=== PATIENT | female | born 1955 | race Caucasian/White ===

== ENCOUNTER → 2018-02-28 | Day surgery (SDC) | payer OTHER ==
[~2018-02-28] MED LIST: BACT800T5 PO; D32000TA PO; FURO1TAB93 PO; LEVO75TA3 PO; METF500 PO; NAPR-729 PO; ONETKIT9; POTA20IN3 PO; RANI150T PO; [UNRECOGNIZED DRUG - REMARK] PO
== END | disposition home or self-care (01) ==
LOC: ESDC 08:51
PROVIDERS: ATTEND Student in an Organized Health Care Education/Training Program
DX: C77.3 Secondary and unspecified malignant neoplasm of axilla and upper limb lymph nodes (principal); Z53.9 Procedure and treatment not carried out, unspecified reason

== ENCOUNTER 2018-04-15 14:36 | Inpatient (IN) ==
[2018-04-15] MEDS ORDERED: Piperacil/Tazo 3.375 GM Premix 50 ML IV.SIG SCH ×2 (16:30→18:00)
[2018-04-15] MEDS: Vancomycin Inj 1,000 MG in Sodium Chlor 0.9% Inj 250 ML IV.SIG SCH (17:40)
[2018-04-15] MEDS: Furosemide 40 MG Tablet PO SCH (17:42)
[2018-04-15] MEDS: Famotidine 20 MG Tablet PO SCH (21:23)
[2018-04-15] MEDS: Piperacil/Tazo 3.375 GM Premix 50 ML IV.SIG SCH (21:24)
[2018-04-16] MEDS: Vancomycin Inj 1,000 MG in Sodium Chlor 0.9% Inj 250 ML IV.SIG SCH ×2 (05:20→18:45)
[2018-04-16] MEDS: Levothyroxine 75 MCG Tablet PO SCH (05:20)
[2018-04-16] MEDS: Piperacil/Tazo 3.375 GM Premix 50 ML IV.SIG SCH ×4 (06:08→20:05)
[2018-04-16] MEDS: Famotidine 20 MG Tablet PO SCH ×2 (08:22→20:06)
[2018-04-16] MEDS: Furosemide 40 MG Tablet PO SCH (08:22)
--- NOTE | 2018-04-16 08:51 | P.HPIM ---
History of Present Illness Primary Care Physician: Ruddy Altamirano MD Chief Complaint: left breast infection History of Present Illness: patient is a 62 y/o female who was diagnosed with breast cancer last June, underwent left mastectomy and lymph node removal/ and left breasdt reconstruction about a month ago, was sent to the hospital as a direct admit because of infection of the left breast. she says that she noticed some swelling and redness on the site of the surgery about a week ago. she had fever and chills at home. she was seen by her plastic surgery yesterday and was advised to come to the hospital at the time of my evaluation she was comfortable with mild pain. Inpatient Certification: I certify that the inpatient services were ordered in accordance with Medicare regulations governing the order. This includes certification that hospital inpatient services are reasonable and necessary and in the case of services not specified as inpatient-only under 42 CFR 419.22(n), that they are appropriately provided as inpatient services in accordance to with the 2-midnight benchmark under 43 CFR 412.3(e) Estimated Total Length of Stay (Days): 2 Plans for Post Hospital Care: Home Review of Systems All other systems reviewed negative except as stated in HPI PMFSH - History History Provided By: Patient - Medical History Medical History: Medical History (Last Updated 04/15/18 @ 16:28 by Grecia Hdz RN) Arthritis Breast cancer Diabetes Hiatal hernia Hypertension Hypothyroidism - Surgical History Surgical History: Surgical History (Last Updated 04/15/18 @ 16:28 by Grecia Hdz RN) Hx of section Status post chemotherapy - Tobacco History Second Hand Smoke Exposure: No Tobacco Use In Past 30 Days: No Smoking Status: Former smoker Tobacco Type: Cigarettes - Alcohol History How Often Do You Have a Drink Containing Alcohol: Never - Substance Use History Substance History: No History of Abuse Medications and Allergies Active Medications: Active Medications Hydrocodone Bitart/Acetaminophen (Milton 5/325) 1 tab PO Q6H PRN PRN Reason: PAIN SCALE 1 TO 10 Last Admin: 04/16/18 01:47 Dose: 1 tab Famotidine (Pepcid) 20 mg PO BID PETE Last Admin: 04/16/18 08:22 Dose: 20 mg Furosemide (Lasix) 40 mg PO DAILY PETE Last Admin: 04/16/18 08:22 Dose: 40 mg Vancomycin HCl 1,000 mg/ (Sodium Chloride) 250 mls @ 250 mls/hr IV.SIG Q12H [facility] Last Admin: 04/16/18 05:20 Dose: 250 mls/hr Piperacillin/Tazobactam/Dextrose (Zosyn 3.375 Gm Premix) 50 mls @ 100 mls/hr IV.SIG Q6H [facility] Last Admin: 04/16/18 08:22 Dose: 100 mls/hr Levothyroxine Sodium (Synthroid) 75 mcg PO DAILY@0600 [facility] Last Admin: 04/16/18 05:20 Dose: 75 mcg Losartan Potassium (Cozaar) 25 mg PO DAILY [facility] Last Admin: 04/16/18 08:22 Dose: 25 mg Potassium Chloride (K-Dur) 20 meq PO DAILY [facility] Last Admin: 04/16/18 08:22 Dose: 20 meq Allergies Allergy/AdvReac Type Severity Reaction Status Date / Time No Known Allergies Allergy Uncoded 08/14/15 09:09 Home Medications Medication Instructions Recorded Confirmed Type acetaminophen [Tylenol Extra 500 mg PO QID 04/15/18 04/15/18 History Strength] calcium carbonate-vitamin D3 600 mg PO DAILY 04/15/18 04/15/18 History [Caltrate with Vitamin D3] cholecalciferol (vitamin D3) 2,000 unit PO DAILY 04/15/18 04/15/18 History [Vitamin D3] furosemide [Lasix] 40 mg PO DAILY 04/15/18 04/15/18 History levothyroxine 75 mcg PO DAILY 04/15/18 04/15/18 History losartan 6.25 mg PO DAILY 04/15/18 04/15/18 History metformin 500 mg PO TID 04/15/18 04/15/18 History potassium chloride 20 meq PO DAILY 04/15/18 04/15/18 History ranitidine HCl 150 mg PO DAILY 04/15/18 04/15/18 History Exam Vital signs: Vital Signs 04/15/18 17:00 04/15/18 20:00 04/16/18 00:00 Temperature 101.0 F H 99.2 F 99.8 F H Pulse Rate 110 H 107 H 94 H Respiratory Rate 20 20 18 Blood Pressure 114/74 132/59 L 102/56 L Pulse Oximetry 96 92 L 93 L 04/16/18 04:00 Temperature 98.4 F Pulse Rate 87 Respiratory Rate 18 Blood Pressure 106/53 L Pulse Oximetry 93 L Intake & Output 04/15/18 04/16/18 04/16/18 18:59 06:59 18:59 Intake Total 250 / 250 220 / 220 Balance 250 / 250 220 / 220 Weight 93.3 kg 94.2 kg Intake: IV 250 / 250 100 / 100 Zosyn 3.375 GM Premix 50 ML @ 100 / 100 100 mls/hr IV.SIG Q6H PETE Rx#: [id number] Vancomycin Inj 1,000 MG In NS 250 / 250 Inj 250 ML @ 250 mls/hr IV.SIG Q12H PETE Rx#:[id number] Oral 120 / 120 Other: # Voids 2 # Bowel Movements 0 Weight On Admission 93.3 kg - Constitutional no acute distress - Routine Chest/Breast/Axilla Exam Breast: Present: tenderness, erythema (left breast.) - Routine Respiratory Exam Present: CTA bilaterally - Routine Cardiovascular Exam Present: RRR - Routine Abdominal Exam Present: soft - Routine Extremities Exam Comments: no pedal edema. - Routine Neurological Exam Present: alert, oriented X3 Results - Labs CBC & Chem 7: 04/16/18 09:55 04/16/18 09:55 Caprini VTE Risk Assessment Caprini VTE Risk Assessment: Moderate/High Risk (score >= 2) Caprini Risk Assessment Model: Point Value = 1 Point Value = 2 Point Value = 3 Point Value = 5 Age 41-60 Minor surgery BMI > 25 kg/m2 Swollen legs Varicose veins or History of unexplained or recurrent spontaneous Oral contraceptives or hormone replacement Sepsis (< 1 month) Serious lung disease, including pneumonia (< 1 month) Abnormal pulmonary function Acute myocardial infarction Congestive heart failure (< 1 month) History of inflammatory bowel disease Medical patient at bed rest Age 61-74 Arthroscopic surgery Major open surgery (> 45 min) Laparoscopic surgery (> 45 min) Malignancy Confined to bed (> 72 hours) Immobilizing plaster cast Central venous access Age >= 75 History of VTE Family history of VTE Factor V Leiden Prothrombin [id number] Lupus anticoagulant Anticardiolipin antibodies Elevated serum homocysteine Heparin-induced thrombocytopenia Other congenital or acquired thrombophilia Stroke (< 1 month) Elective arthroplasty Hip, pelvis, or leg fracture Acute spinal cord injury (< 1 month) Prophylaxis Regimen: Total Risk Factor Score Risk Level Prophylaxis Regimen 0-1 Low Early ambulation 2 Moderate Order ONE of the following: *Sequential Compression Device (SCD) *Heparin 5000 units SQ BID 3-4 Higher Order ONE of the following medications: *Heparin 5000 units SQ TID *Enoxaparin/Lovenox 40 mg SQ daily (WT < 150 kg, CrCl > 30 mL/min) *Enoxaparin/Lovenox 30 mg SQ daily (WT < 150 kg, CrCl > 10-29 mL/min) *Enoxaparin/Lovenox 30 mg SQ BID (WT < 150 kg, CrCl > 30 mL/min) AND/OR *Sequential Compression Device (SCD) 5 or more Highest Order ONE of the following medications: *Heparin 5000 units SQ TID (Preferred with Epidurals) *Enoxaparin/Lovenox 40 mg SQ daily (WT < 150 kg, CrCl > 30 mL/min) *Enoxaparin/Lovenox 30 mg SQ daily (WT < 150 kg, CrCl > 10-29 mL/min) *Enoxaparin/Lovenox 30 mg SQ BID (WT < 150 kg, CrCl > 30 mL/min) AND *Sequential Compression Device (SCD) Assessment and Plan - Plan A/P - sepsis due to cellulitis of the left breast- s/p recent mastectomy and left breast reconstruction continue with broad-spectrum IV antibiotics and pain control- obtain blood cultures- plastic surgery consulted- will consider ID evaluation. -diabetes mellitus; start on accu-check with SSI -hypothyroidism; resume home meds -DVT prophylaxis; SCD's till surgery evaluation. Discharge Planning: pending surgery evaluation. H&P: Quality - VTE Deep Vein Thrombosis/Pulmonary Embolism Present on Admission: No
[2018-04-16] MEDS ORDERED: Dextrose 50% in Water 50 ML Vial IV.PUSH PRN (08:54)
[2018-04-16 10:10] LABS: Baso # (Auto) 0.1 th/mm3 (0.0-0.2); Baso % (Auto) 0.5 % (0.0-2.0); Eos # (Auto) 0.1 th/mm3 (0.0-0.4); Eos % (Auto) 0.5 % (0.0-4.0); Hematocrit 35.1 % (35.0-46.0); Hemoglobin 11.8 gm/dL (11.6-15.3); Lymph # (Auto) 0.6 th/mm3 (1.0-4.8); Lymph % (Auto) 5.1 % (9.0-44.0); Mean Corpuscular HGB Conc 33.5 % (32.0-36.0); Mean Corpuscular Volume 89.6 fL (80.0-100.0); Mean Platelet Volume 8.1 fL (7.0-11.0); Mono # (Auto) 1.2 th/mm3 (0.0-0.9); Mono % (Auto) 9.2 % (0.0-8.0); Neut # (Auto) 10.7 th/mm3 (1.8-7.7); Neut % (Auto) 84.7 % (16.0-70.0); Platelet Count 240 th/mm3 (150-450); Red Blood Count 3.92 mil/mm3 (4.00-5.30); White Blood Count 12.7 th/mm3 (4.0-11.0)
[2018-04-16 10:24] LABS: Calcium 9.5 mg/dL (8.5-10.1); Carbon Dioxide 29.1 meq/L (21.0-32.0); Potassium 3.4 meq/L (3.5-5.1)
[2018-04-16 10:44] LABS: Lymphocytes 3 % (9-44); Monocytes 11 % (0-8); Platelet Estimate Normal (Normal); Platelet Morphology Normal (Normal)
[2018-04-16] MEDS: Insulin NovoLOG Aspart Correctional Sugar Inj SQ SCH ×3 (14:39→20:11)
--- NOTE | 2018-04-16 16:15 | US ---
EXAM DATE: 04/16/2018 4:06 PM EDT AGE/SEX: 62 years / Female INDICATIONS: Abscess. CLINICAL DATA: This is the patient's initial encounter. Patient reports that signs and symptoms have been present for 1 week and indicates a pain score of 4/10. MEDICAL/SURGICAL HISTORY: Hypertension. Hypothyroidism. Arthritis. Breast cancer. Diabetes. Hi atal hernia. section. Mastectomy, left. Chemotherapy. COMPARISON: [facility], US BREAST, LEFT, 10/19/2017. . TECHNIQUE: Real-time ultrasound examination was performed using a high-frequency transducer. Conven tional and compound scanning techniques were used. FINDINGS: There is a complex fluid collection in the inferior portion of left breast at the 5:00 position 4 cm from the nipple. This region measures 5.2 x 5.6 x 1.2 cm and demonstrates mild increased color flow a long the periphery. CONCLUSION: 1. Complex fluid collection. The differential diagnosis includes abscess and hematoma.. Electronically signed by: David Trammell MD 04/16/2018 4:13 PM EDT
--- NOTE | 2018-04-16 16:58 | P.PN ---
Subjective Interval history: Patient reports continued pain of the left chest with any sort of pressing maneuver of her left upper extremity. Patient complaining of constipation since her last bowel movements during an episode of diarrhea on Wednesday. Patient status post milk of magnesia this morning. Patient reports that she has been ambulating Physical Exam Vital signs: Vital Signs 04/15/18 17:00 04/15/18 20:00 04/16/18 00:00 Temperature 101.0 F H 99.2 F 99.8 F H Pulse Rate 110 H 107 H 94 H Respiratory Rate 20 20 18 Blood Pressure 114/74 132/59 L 102/56 L Pulse Oximetry 96 92 L 93 L 04/16/18 04:00 04/16/18 08:00 04/16/18 12:00 Temperature 98.4 F 97.9 F 98.3 F Pulse Rate 87 91 H 98 H Respiratory Rate 18 20 Blood Pressure 106/53 L 122/74 94/60 L Pulse Oximetry 93 L 97 96 Intake & Output 04/15/18 04/16/18 04/16/18 18:59 06:59 18:59 Intake Total 250 / 250 220 / 220 50 / 50 Balance 250 / 250 220 / 220 50 / 50 Weight 93.3 kg 94.2 kg Intake: IV 250 / 250 100 / 100 50 / 50 Zosyn 3.375 GM Premix 50 ML @ 100 / 100 50 / 50 100 mls/hr IV.SIG Q6H PETE Rx#: [id number] Vancomycin Inj 1,000 MG In NS 250 / 250 Inj 250 ML @ 250 mls/hr IV.SIG Q12H PETE Rx#:[id number] Oral 120 / 120 Other: # Voids 2 # Bowel Movements 0 Weight On Admission 93.3 kg Narrative: Patient awake/alert/pleasant Left axillary and inferior mastectomy skin flaps erythematous/warm More tender than yesterday at clinic No fluctuance appreciated Results - Labs CBC & Chem 7: 04/16/18 09:55 04/16/18 09:55 Laboratory Results - last 24 hr 04/16/18 04/16/18 04/16/18 09:55 09:55 12:51 WBC 12.7 H RBC 3.92 L Hgb 11.8 Hct 35.1 MCV 89.6 MCH 30.0 MCHC 33.5 RDW 14.0 Plt Count 240 MPV 8.1 Prelim Diff (Auto) Slide review pending Neut % (Auto) 84.7 H Lymph % (Auto) 5.1 L [place] % (Auto) 9.2 H Eos % (Auto) 0.5 Baso % (Auto) 0.5 Neut # (Auto) 10.7 H Lymph # (Auto) 0.6 L [place] # (Auto) 1.2 H Eos # (Auto) 0.1 Baso # (Auto) 0.1 WBC Differential Manual diff final Seg Neuts % (Manual) 79 H Band Neuts % (Manual) 7 H Lymphocytes % (Manual) 3 L Monocytes % (Manual) 11 H Abs Neuts (Manual) 10.9 H Differential Comment . Platelet Estimate Normal Platelet Morphology Normal Sodium 137 Potassium 3.4 L Chloride 100 Carbon Dioxide 29.1 Anion Gap 8 BUN 10 Creatinine 1.02 H Estimated GFR 55 L POC Glucose 184 H Random Glucose 139 H Calcium 9.5 04/16/18 16:26 WBC RBC Hgb Hct MCV MCH MCHC RDW Plt Count MPV Prelim Diff (Auto) Neut % (Auto) Lymph % (Auto) [place] % (Auto) Eos % (Auto) Baso % (Auto) Neut # (Auto) Lymph # (Auto) [place] # (Auto) Eos # (Auto) Baso # (Auto) WBC Differential Seg Neuts % (Manual) Band Neuts % (Manual) Lymphocytes % (Manual) Monocytes % (Manual) Abs Neuts (Manual) Differential Comment Platelet Estimate Platelet Morphology Sodium Potassium Chloride Carbon Dioxide Anion Gap BUN Creatinine Estimated GFR POC Glucose 174 H Random Glucose Calcium - Imaging Impressions Breast Ultrasound 04/16/18 00:00 CONCLUSION: 1. Complex fluid collection. The differential diagnosis includes abscess and hematoma.. Assessment and Plan - Assessment (1) Cellulitis Code(s): L03.90 - Cellulitis, unspecified Status: Acute - Plan 62-year-old female status post left mastectomy and immediate breast reconstruction with tissue client support professional, now admitted for cellulitis on IV Vanco/ Zosyn Cellulitis appears worse from yesterday Patient with temperature of 101 yesterday and leukocytosis of 12 today Vanco trough with third dose IV Zosyn Left breast ultrasound pending to rule out undrained collections Patient ambulating but will defer chemoprophylaxis to medicine No plans for surgery in the near future Greatly appreciate care by hospitalist team
[2018-04-17] MEDS: Piperacil/Tazo 3.375 GM Premix 50 ML IV.SIG SCH ×4 (01:50→20:36)
[2018-04-17] MEDS: Levothyroxine 75 MCG Tablet PO SCH (06:10)
[2018-04-17] MEDS: Vancomycin Inj 1,000 MG in Sodium Chlor 0.9% Inj 250 ML IV.SIG SCH ×2 (06:11→17:41)
[2018-04-17] MEDS: Furosemide 40 MG Tablet PO SCH (08:32)
[2018-04-17] MEDS: Insulin NovoLOG Aspart Correctional Sugar Inj SQ SCH ×4 (08:39→20:38)
--- NOTE | 2018-04-17 10:01 | P.PNIM ---
Subjective Interval history: f/u; left breast cellulitis looks comfortable. temps better. pain is fairly controlled. d/w the RN. Physical Exam Vital signs: Vital Signs 04/16/18 12:00 04/16/18 16:00 04/16/18 20:00 Temperature 98.3 F 97.9 F 98.1 F Pulse Rate 98 H 98 H 104 H Respiratory Rate 20 20 19 Blood Pressure 94/60 L 101/58 L 99/73 L Pulse Oximetry 96 96 98 04/17/18 00:00 04/17/18 04:00 04/17/18 08:00 Temperature 99.4 F 97.8 F 97.9 F Pulse Rate 98 H 75 86 Respiratory Rate 17 17 20 Blood Pressure 105/68 95/68 L 105/58 L Pulse Oximetry 96 97 96 Intake & Output 04/16/18 04/17/18 04/17/18 18:59 06:59 18:59 Intake Total 100 / 100 590 / 590 Balance 100 / 100 590 / 590 Weight 96 kg Intake: IV 100 / 100 350 / 350 Zosyn 3.375 GM Premix 50 ML @ 100 / 100 100 / 100 100 mls/hr IV.SIG Q6H PETE Rx#: [id number] Vancomycin Inj 1,000 MG In NS 250 / 250 Inj 250 ML @ 250 mls/hr IV.SIG Q12H PETE Rx#:[id number] Oral 240 / 240 Other: # Voids 2 - Constitutional no acute distress - Routine Chest/Breast/Axilla Exam Breast: Present: tenderness, swelling (left breast with some swelling/ mild tenderness and erythema), erythema - Routine Respiratory Exam Present: CTA bilaterally - Routine Cardiovascular Exam Present: RRR - Routine Abdominal Exam Present: soft - Routine Extremities Exam Comments: no pedal edema.has mild swelling/ pain to the right forearm. - Routine Neurological Exam Present: alert, oriented X3 Results - Labs CBC & Chem 7: 04/16/18 09:55 04/16/18 09:55 Laboratory Results - last 24 hr 04/16/18 04/16/18 04/16/18 09:55 09:55 12:51 WBC 12.7 H RBC 3.92 L Hgb 11.8 Hct 35.1 MCV 89.6 MCH 30.0 MCHC 33.5 RDW 14.0 Plt Count 240 MPV 8.1 Prelim Diff (Auto) Slide review pending Neut % (Auto) 84.7 H Lymph % (Auto) 5.1 L [place] % (Auto) 9.2 H Eos % (Auto) 0.5 Baso % (Auto) 0.5 Neut # (Auto) 10.7 H Lymph # (Auto) 0.6 L [place] # (Auto) 1.2 H Eos # (Auto) 0.1 Baso # (Auto) 0.1 WBC Differential Manual diff final Seg Neuts % (Manual) 79 H Band Neuts % (Manual) 7 H Lymphocytes % (Manual) 3 L Monocytes % (Manual) 11 H Abs Neuts (Manual) 10.9 H Differential Comment . Platelet Estimate Normal Platelet Morphology Normal Sodium 137 Potassium 3.4 L Chloride 100 Carbon Dioxide 29.1 Anion Gap 8 BUN 10 Creatinine 1.02 H Estimated GFR 55 L POC Glucose 184 H Random Glucose 139 H Calcium 9.5 Vancomycin Trough 04/16/18 04/16/18 04/16/18 16:26 17:14 20:08 WBC RBC Hgb Hct MCV MCH MCHC RDW Plt Count MPV Prelim Diff (Auto) Neut % (Auto) Lymph % (Auto) [place] % (Auto) Eos % (Auto) Baso % (Auto) Neut # (Auto) Lymph # (Auto) [place] # (Auto) Eos # (Auto) Baso # (Auto) WBC Differential Seg Neuts % (Manual) Band Neuts % (Manual) Lymphocytes % (Manual) Monocytes % (Manual) Abs Neuts (Manual) Differential Comment Platelet Estimate Platelet Morphology Sodium Potassium Chloride Carbon Dioxide Anion Gap BUN Creatinine Estimated GFR POC Glucose 174 H 162 H Random Glucose Calcium Vancomycin Trough 9.9 - Imaging Impressions Breast Ultrasound 04/16/18 00:00 CONCLUSION: 1. Complex fluid collection. The differential diagnosis includes abscess and hematoma.. Assessment and Plan - Plan A/P - sepsis due to cellulitis of the left breast- s/p recent mastectomy and left breast reconstruction left breast US with fluid collection. continue with broad-spectrum IV antibiotics and pain control- follow blood cultures- plastic surgery following- will consider ID evaluation. -right forearm swelling; will check venous doppler. -diabetes mellitus; started on accu-check with SSI -hypothyroidism; resumed home meds -DVT prophylaxis; SCD's till plastic surgery f/u. Discharge Planning: not ready for discharge yet.
[2018-04-17] MEDS: Famotidine 20 MG Tablet PO SCH (10:04)
--- NOTE | 2018-04-17 17:10 | US ---
EXAM DATE: 04/17/2018 4:40 PM EDT AGE/SEX: 62 years / Female INDICATIONS: Right arm swelling. CLINICAL DATA: This is the patient's initial encounter. Patient reports that signs and symptoms have been present for 1 day and indicates a pain score of 2/10. MEDICAL/SURGICAL HISTORY: . Hypertension. Hypothyroidism. Arthritis. Breast cancer. Diabetes. H iatal hernia. section. Mastectomy, left. Chemotherapy. COMPARISON: No prior exams available for comparison. FINDINGS: There is occlusive thrombus within the right cephalic vein. The right internal jugular, coppola bclavian, axillary, brachial and basilic veins are patent. Other: None. CONCLUSION: 1. Superficial thrombus occlusive within the right cephalic vein. No deep venous thrombosis. Electronically signed by: Ramez Elizabeth MD 04/17/2018 5:08 PM EDT
[2018-04-18] MEDS: Piperacil/Tazo 3.375 GM Premix 50 ML IV.SIG SCH ×4 (02:34→20:45)
[2018-04-18] MEDS: Levothyroxine 75 MCG Tablet PO SCH (05:39)
[2018-04-18] MEDS: Vancomycin Inj 1,000 MG in Sodium Chlor 0.9% Inj 250 ML IV.SIG SCH ×2 (05:39→17:31)
--- NOTE | 2018-04-18 08:49 | P.PN ---
Subjective Interval history: Delayed entry from yesterday afternoon Patient reporting continued pain of left chest, slightly better. Physical Exam Vital signs: Vital Signs 04/17/18 12:00 04/17/18 16:00 04/17/18 20:00 Temperature 97.9 F 98 F 97.7 F Pulse Rate 85 85 87 Respiratory Rate 20 20 16 Blood Pressure 92/52 L 113/59 L 103/62 Pulse Oximetry 96 96 97 04/18/18 00:00 04/18/18 04:00 Temperature 97.7 F 97.8 F Pulse Rate 87 76 Respiratory Rate 18 17 Blood Pressure 101/63 101/58 L Pulse Oximetry 95 95 Intake & Output 04/17/18 04/18/18 04/18/18 18:59 06:59 18:59 Intake Total 600 / 600 340 / 340 Balance 600 / 600 340 / 340 Weight 95.5 kg Intake: IV 600 / 600 100 / 100 Zosyn 3.375 GM Premix 50 ML @ 100 / 100 100 / 100 100 mls/hr IV.SIG Q6H PETE Rx#: [id number] Vancomycin Inj 1,000 MG In NS 500 / 500 Inj 250 ML @ 250 mls/hr IV.SIG Q12H PETE Rx#:[id number] Oral 240 / 240 Other: # Voids 2 Narrative: Left chest erythema stable Fluctuance appreciated inferolaterally Results - Labs CBC & Chem 7: 04/16/18 09:55 04/16/18 09:55 Laboratory Results - last 24 hr 04/17/18 04/17/18 04/17/18 08:38 11:30 16:31 POC Glucose 133 H 168 H 164 H Vancomycin Trough 04/17/18 04/17/18 04/18/18 17:31 20:00 08:09 POC Glucose 155 H 109 Vancomycin Trough 11.6 H Microbiology 04/16/18 10:33 Blood - Peripheral Aerobic Blood Culture - Preliminary No growth in 1 day 04/16/18 10:33 Blood - Peripheral Anaerobic Blood Culture - Preliminary No growth in 1 day 04/16/18 10:38 Blood - Peripheral Aerobic Blood Culture - Preliminary No growth in 1 day 04/16/18 10:38 Blood - Peripheral Anaerobic Blood Culture - Preliminary No growth in 1 day - Imaging Impressions Venous Doppler Study 04/17/18 00:00 CONCLUSION: 1. Superficial thrombus occlusive within the right cephalic vein. No deep venous thrombosis. Assessment and Plan - Assessment (1) Cellulitis Code(s): L03.90 - Cellulitis, unspecified Status: Acute - Plan 62-year-old female status post left mastectomy and immediate breast reconstruction with tissue membership administrator, now admitted for cellulitis on IV Vanco/ Zosyn Cellulitis slightly improved Afebrile Vancomycin therapeutic on repeat trough Zosyn Informed consent obtained for bedside aspiration ~35mls thin turbid straw-colored fluid sent for cx and stain Well-tolerated Repeat US of Left chest today to evaluate for persistent fluid
[2018-04-18] MEDS: Insulin NovoLOG Aspart Correctional Sugar Inj SQ SCH ×4 (09:11→20:48)
[2018-04-18] MEDS: Furosemide 40 MG Tablet PO SCH (09:12)
[2018-04-18] MEDS: Famotidine 20 MG Tablet PO SCH (09:18)
--- NOTE | 2018-04-18 10:17 | US ---
EXAM DATE: 04/18/2018 10:06 AM EDT AGE/SEX: 62 years / Female INDICATIONS: Left breast increased swelling. History of left breast carcinoma status post prior mast ectomy and reconstruction with tissue steel erector in place. Patient has pain, swelling and redness CLINICAL DATA: This is the patient's subsequent encounter. Patient reports that signs and symptoms h ave been present for 2 days and indicates a pain score of 0/10. MEDICAL/SURGICAL HISTORY: Carcinoma, breast. Hypertension. Hypothyroidism. Arthritis. Diabe manuela. Hiatal Hernia. Mastectomy, left. section. Chemotherapy. [place] [facility] [place]. . TECHNIQUE: Real-time ultrasound examination was performed using a high-frequency transducer. Conven tional and compound scanning techniques were used. FINDINGS: A targeted left breast ultrasound study was performed and again demonstrates a heterogeneous hypoecho ic area at the 5 to 6:00 position measuring up to 10.1 x 5 x 3 cm in greatest diameter. This appears increased in size since the prior study. There is mild surrounding color flow with no color flow in t he abnormality. CONCLUSION: 1. Apparent interval increase in the size of the heterogeneous hypoechoic area. The differential ben gnosis again includes abscess and hematoma. Electronically signed by: David Trammell MD 04/18/2018 10:16 AM EDT
--- NOTE | 2018-04-18 11:15 | P.PNIM ---
Subjective Interval history: f/u; left breast cellulitis/abscess overall feeling better. pain to the left breast is better. no fever. Physical Exam Vital signs: Vital Signs 04/17/18 12:00 04/17/18 16:00 04/17/18 20:00 Temperature 97.9 F 98 F 97.7 F Pulse Rate 85 85 87 Respiratory Rate 20 20 16 Blood Pressure 92/52 L 113/59 L 103/62 Pulse Oximetry 96 96 97 04/18/18 00:00 04/18/18 04:00 Temperature 97.7 F 97.8 F Pulse Rate 87 76 Respiratory Rate 18 17 Blood Pressure 101/63 101/58 L Pulse Oximetry 95 95 Intake & Output 04/17/18 04/18/18 04/18/18 18:59 06:59 18:59 Intake Total 600 / 600 340 / 340 Balance 600 / 600 340 / 340 Weight 95.5 kg Intake: IV 600 / 600 100 / 100 Zosyn 3.375 GM Premix 50 ML @ 100 / 100 100 / 100 100 mls/hr IV.SIG Q6H PETE Rx#: [id number] Vancomycin Inj 1,000 MG In NS 500 / 500 Inj 250 ML @ 250 mls/hr IV.SIG Q12H PETE Rx#:[id number] Oral 240 / 240 Other: # Voids 2 - Constitutional no acute distress - Routine Chest/Breast/Axilla Exam Breast: Present: swelling, erythema (induation -left breast- seems to be improving.) - Routine Respiratory Exam Present: CTA bilaterally - Routine Cardiovascular Exam Present: RRR - Routine Abdominal Exam Present: soft - Routine Extremities Exam Comments: no pedal edema. - Routine Neurological Exam Present: alert, oriented X3 Results - Labs CBC & Chem 7: 04/16/18 09:55 04/16/18 09:55 Laboratory Results - last 24 hr 04/17/18 04/17/18 04/17/18 08:38 11:30 16:31 POC Glucose 133 H 168 H 164 H Vancomycin Trough 04/17/18 04/17/18 04/18/18 17:31 20:00 08:09 POC Glucose 155 H 109 Vancomycin Trough 11.6 H Microbiology 04/16/18 10:33 Blood - Peripheral Aerobic Blood Culture - Preliminary No growth in 2 days 04/16/18 10:33 Blood - Peripheral Anaerobic Blood Culture - Preliminary No growth in 2 days 04/16/18 10:38 Blood - Peripheral Aerobic Blood Culture - Preliminary No growth in 2 days 04/16/18 10:38 Blood - Peripheral Anaerobic Blood Culture - Preliminary No growth in 2 days 04/17/18 15:17 Fluid - Other Gram Stain - Final - Imaging Impressions Venous Doppler Study 04/17/18 00:00 CONCLUSION: 1. Superficial thrombus occlusive within the right cephalic vein. No deep venous thrombosis. Breast Ultrasound 04/18/18 00:01 CONCLUSION: 1. Apparent interval increase in the size of the heterogeneous hypoechoic area. The differential diagnosis again includes abscess and hematoma. Assessment and Plan - Plan A/P - sepsis due to cellulitis of the left breast- s/p recent mastectomy and left breast reconstruction left breast US with fluid collection. s/p I/D at the bedside. continue with broad-spectrum IV antibiotics and pain control- blood cultures negative so far- will follow the fluid culture. plastic surgery following. -right forearm swelling; doppler with superficial thrombosis- -diabetes mellitus; started on accu-check with SSI -hypothyroidism; resumed home meds -DVT prophylaxis; SCD's till plastic surgery f/u. Discharge Planning: not ready for discharge yet.
[2018-04-18] MEDS ORDERED: Lidocaine 1% Inj 50 ML Vial ONE (14:18)
--- NOTE | 2018-04-18 16:49 | P.PN ---
Subjective Interval history: Patient feeling better from yesterday. No fevers overnight patient reports less pain of left chest Physical Exam Vital signs: Vital Signs 04/17/18 20:00 04/18/18 00:00 04/18/18 04:00 Temperature 97.7 F 97.7 F 97.8 F Pulse Rate 87 87 76 Respiratory Rate 16 18 17 Blood Pressure 103/62 101/63 101/58 L Pulse Oximetry 97 95 95 04/18/18 13:14 Temperature 97.4 F L Pulse Rate 85 Respiratory Rate 18 Blood Pressure 126/60 Pulse Oximetry 99 Intake & Output 04/17/18 04/18/18 04/18/18 18:59 06:59 18:59 Intake Total 600 / 600 340 / 340 Balance 600 / 600 340 / 340 Weight 95.5 kg Intake: IV 600 / 600 100 / 100 Zosyn 3.375 GM Premix 50 ML @ 100 / 100 100 / 100 100 mls/hr IV.SIG Q6H PETE Rx#: [id number] Vancomycin Inj 1,000 MG In NS 500 / 500 Inj 250 ML @ 250 mls/hr IV.SIG Q12H PETE Rx#:[id number] Oral 240 / 240 Other: # Voids 2 Narrative: Left inferior mastectomy skin flaps and axillary skin remains erythematous Mildly tender, though patient with significantly decreased sensation due to mastectomy Positive fluctuance inferolateral left breast Results - Labs CBC & Chem 7: 04/16/18 09:55 04/16/18 09:55 Laboratory Results - last 24 hr 04/17/18 04/17/18 04/17/18 16:31 17:31 20:00 POC Glucose 164 H 155 H Vancomycin Trough 11.6 H 04/18/18 04/18/18 08:09 12:00 POC Glucose 109 148 H Vancomycin Trough Microbiology 04/17/18 15:17 Fluid - Other Gram Stain - Final 04/17/18 15:17 Fluid - Other Body Fluid Culture - Preliminary Staphylococcus aureus 04/16/18 10:33 Blood - Peripheral Aerobic Blood Culture - Preliminary No growth in 2 days 04/16/18 10:33 Blood - Peripheral Anaerobic Blood Culture - Preliminary No growth in 2 days 04/16/18 10:38 Blood - Peripheral Aerobic Blood Culture - Preliminary No growth in 2 days 04/16/18 10:38 Blood - Peripheral Anaerobic Blood Culture - Preliminary No growth in 2 days - Imaging Impressions Venous Doppler Study 04/17/18 00:00 CONCLUSION: 1. Superficial thrombus occlusive within the right cephalic vein. No deep venous thrombosis. Breast Ultrasound 04/18/18 00:01 CONCLUSION: 1. Apparent interval increase in the size of the heterogeneous hypoechoic area. The differential diagnosis again includes abscess and hematoma. Assessment and Plan - Assessment (1) Cellulitis Code(s): L03.90 - Cellulitis, unspecified Status: Acute (2) Left breast abscess Code(s): N61.1 - Abscess of the breast and nipple Status: Acute - Plan 62-year-old female status post left mastectomy and immediate breast reconstruction with tissue getter welder, now admitted for cellulitis on IV Vanco/ Zosyn Cellulitis slightly improved Afebrile Vancomycin therapeutic on repeat trough Zosyn Discussed patient's case with Dr. Segun Mc, the general surgeon who performed the mastectomy Concern expressed to patient regarding undrained collection, given recent repeat ultrasound showing increase in collection Risks benefits and alternative treatments discussed All questions answered and the patient expressed understanding Patient elected to assume the risks of percutaneous Taurus drain placement at bedside Informed consent obtained Significant thin turbid straw-colored fluid expressed 10 Swedish Taurus drain left in place and placed to bulb suction Well-tolerated
[2018-04-19] MEDS: Piperacil/Tazo 3.375 GM Premix 50 ML IV.SIG SCH ×4 (01:27→22:02)
[2018-04-19 06:00] LABS: Baso % (Auto) 0.5 % (0.0-2.0); Eos # (Auto) 0.1 th/mm3 (0.0-0.4); Eos % (Auto) 1.3 % (0.0-4.0); Hematocrit 35.5 % (35.0-46.0); Hemoglobin 11.8 gm/dL (11.6-15.3); Lymph # (Auto) 0.9 th/mm3 (1.0-4.8); Lymph % (Auto) 9.8 % (9.0-44.0); Mean Corpuscular HGB Conc 33.1 % (32.0-36.0); Mean Corpuscular Hemoglobin 29.8 pg (27.0-34.0); Mean Corpuscular Volume 89.8 fL (80.0-100.0); Mean Platelet Volume 7.7 fL (7.0-11.0); Neut % (Auto) 77.4 % (16.0-70.0); Platelet Count 292 th/mm3 (150-450); Red Blood Count 3.95 mil/mm3 (4.00-5.30); Red Cell Distribution Width 14.3 % (11.6-17.2)
[2018-04-19] MEDS: Levothyroxine 75 MCG Tablet PO SCH (06:14)
[2018-04-19] MEDS: Vancomycin Inj 1,000 MG in Sodium Chlor 0.9% Inj 250 ML IV.SIG SCH ×2 (06:15→17:12)
[2018-04-19 06:18] LABS: Calcium 9.1 mg/dL (8.5-10.1); Carbon Dioxide 28.5 meq/L (21.0-32.0); Potassium 3.8 meq/L (3.5-5.1)
[2018-04-19 07:48] LABS: Lymphocytes 11 % (9-44); Monocytes 5 % (0-8); Myelocytes 6 % (0-0); Platelet Estimate Normal (Normal); Platelet Morphology Normal (Normal); RBC Morphology Normal (Normal)
[2018-04-19] MEDS: Famotidine 20 MG Tablet PO SCH (08:18)
[2018-04-19] MEDS: Furosemide 40 MG Tablet PO SCH (08:18)
[2018-04-19] MEDS: Insulin NovoLOG Aspart Correctional Sugar Inj SQ SCH ×4 (08:27→22:04)
--- NOTE | 2018-04-19 10:10 | P.PNIM ---
Subjective Interval history: in no acute distress. has some swelling of the right forearm. no fever. no other complaints. d/w the RN. Physical Exam Vital signs: Vital Signs 04/18/18 13:14 04/18/18 17:47 04/18/18 20:00 Temperature 97.4 F L 97.5 F L 97.6 F Pulse Rate 85 88 91 H Respiratory Rate 18 18 18 Blood Pressure 126/60 111/57 L 110/61 Pulse Oximetry 99 96 98 04/19/18 00:00 04/19/18 04:00 Temperature 97.7 F 97.5 F L Pulse Rate 78 71 Respiratory Rate 18 18 Blood Pressure 103/59 L 105/59 L Pulse Oximetry 94 L 95 Intake & Output 04/18/18 04/19/18 04/19/18 18:59 06:59 18:59 Intake Total 1100 / 1100 220 / 220 Output Total 40 / 40 30 / 30 Balance 1060 / 1060 190 / 190 Weight 95.6 kg Intake: IV 100 / 100 100 / 100 Zosyn 3.375 GM Premix 50 ML @ 100 / 100 100 / 100 100 mls/hr IV.SIG Q6H PETE Rx#: [id number] Oral 1000 / 1000 120 / 120 Output: Wound Drainage 40 / 40 30 / 30 Left Breast 40 / 40 30 / 30 Other: # Voids 6 4 # Bowel Movements 1 - Routine Respiratory Exam Present: CTA bilaterally Comments: drain in place in left breast. - Routine Cardiovascular Exam Present: RRR - Routine Abdominal Exam Present: soft - Routine Extremities Exam Comments: no pedal edema. - Routine Neurological Exam Present: alert, oriented X3 Results - Labs CBC & Chem 7: 04/19/18 05:20 04/19/18 05:20 Laboratory Results - last 24 hr 04/18/18 04/18/18 04/18/18 12:00 16:54 19:55 WBC RBC Hgb Hct MCV MCH MCHC RDW Plt Count MPV Prelim Diff (Auto) Neut % (Auto) Lymph % (Auto) [place] % (Auto) Eos % (Auto) Baso % (Auto) Neut # (Auto) Lymph # (Auto) [place] # (Auto) Eos # (Auto) Baso # (Auto) WBC Differential Seg Neuts % (Manual) Band Neuts % (Manual) Lymphocytes % (Manual) Monocytes % (Manual) Basophils % (Manual) Myelocytes % (Man) Abs Neuts (Manual) Differential Comment Platelet Estimate Platelet Morphology RBC Morphology Sodium Potassium Chloride Carbon Dioxide Anion Gap BUN Creatinine Estimated GFR POC Glucose 148 H 212 H 160 H Random Glucose Calcium 04/19/18 04/19/18 04/19/18 05:20 05:20 07:34 WBC 9.0 RBC 3.95 L Hgb 11.8 Hct 35.5 MCV 89.8 MCH 29.8 MCHC 33.1 RDW 14.3 Plt Count 292 MPV 7.7 Prelim Diff (Auto) Slide review pending Neut % (Auto) 77.4 H Lymph % (Auto) 9.8 [place] % (Auto) 11.0 H Eos % (Auto) 1.3 Baso % (Auto) 0.5 Neut # (Auto) 7.0 Lymph # (Auto) 0.9 L [place] # (Auto) 1.0 H Eos # (Auto) 0.1 Baso # (Auto) 0.0 WBC Differential Manual diff final Seg Neuts % (Manual) 68 Band Neuts % (Manual) 9 H Lymphocytes % (Manual) 11 Monocytes % (Manual) 5 Basophils % (Manual) 1 Myelocytes % (Man) 6 H Abs Neuts (Manual) 7.5 Differential Comment . Platelet Estimate Normal Platelet Morphology Normal RBC Morphology Normal Sodium 140 Potassium 3.8 Chloride 104 Carbon Dioxide 28.5 Anion Gap 8 BUN 16 Creatinine 1.01 H Estimated GFR 56 L POC Glucose 119 H Random Glucose 122 H Calcium 9.1 Microbiology 04/17/18 15:17 Fluid - Other Gram Stain - Final 04/17/18 15:17 Fluid - Other Body Fluid Culture - Preliminary Staphylococcus aureus 04/16/18 10:33 Blood - Peripheral Aerobic Blood Culture - Preliminary No growth in 2 days 04/16/18 10:33 Blood - Peripheral Anaerobic Blood Culture - Preliminary No growth in 2 days 04/16/18 10:38 Blood - Peripheral Aerobic Blood Culture - Preliminary No growth in 2 days 04/16/18 10:38 Blood - Peripheral Anaerobic Blood Culture - Preliminary No growth in 2 days - Imaging Impressions Breast Ultrasound 04/18/18 00:01 CONCLUSION: 1. Apparent interval increase in the size of the heterogeneous hypoechoic area. The differential diagnosis again includes abscess and hematoma. Assessment and Plan - Plan A/P - sepsis due to cellulitis of the left breast- s/p recent mastectomy and left breast reconstruction left breast US with fluid collection. s/p I/D / drain placement at the bedside. continue with broad-spectrum IV antibiotics and pain control- blood cultures negative so far- fluid culture with staph. plastic surgery following. -right forearm swelling; doppler with superficial thrombosis- might need to remove the IV access. will monitor. -diabetes mellitus; started on accu-check with SSI -hypothyroidism; resumed home meds -DVT prophylaxis; SCD's till plastic surgery f/u. Discharge Planning: not ready for discharge yet.
--- NOTE | 2018-04-19 20:53 | P.PN ---
Subjective Interval history: Patient reports slightly worse pain of the left chest, though she feels this is because of the procedure yesterday. She also endorses some mild swelling of the right forearm in these location of the IV. Physical Exam Vital signs: Vital Signs 04/19/18 00:00 04/19/18 04:00 04/19/18 08:00 Temperature 97.7 F 97.5 F L 97.5 F L Pulse Rate 78 71 78 Respiratory Rate 18 18 16 Blood Pressure 103/59 L 105/59 L 105/70 Pulse Oximetry 94 L 95 96 04/19/18 12:00 04/19/18 16:00 Temperature 97.7 F 97.3 F L Pulse Rate 76 86 Respiratory Rate 16 16 Blood Pressure 103/57 L 100/65 Pulse Oximetry 96 97 Intake & Output 04/19/18 04/19/18 04/20/18 06:59 18:59 06:59 Intake Total 220 / 220 1200 / 1200 Output Total 30 / 825 / 825 Balance 190 / 190 375 / 375 Weight 95.6 kg Intake: IV 100 / 100 600 / 600 Zosyn 3.375 GM Premix 50 ML @ 100 / 100 100 / 100 100 mls/hr IV.SIG Q6H PETE Rx#: [id number] Vancomycin Inj 1,000 MG In NS 500 / 500 Inj 250 ML @ 250 mls/hr IV.SIG Q12H PETE Rx#:[id number] Oral 120 / 120 600 / 600 Output: Urine 800 / 800 Wound Drainage 30 25 / 25 Left Breast 30 25 / 25 Other: # Voids 4 # Bowel Movements 1 Narrative: Left chest with considerably less erythema Axilla still with moderate erythema Patient appears less tender No fluctuance appreciated Seropurulent output from the drain BASIA drainage with 70 mls overnight Results - Labs CBC & Chem 7: 04/19/18 05:20 04/19/18 05:20 Laboratory Results - last 24 hr 04/19/18 04/19/18 04/19/18 05:20 05:20 07:34 WBC 9.0 RBC 3.95 L Hgb 11.8 Hct 35.5 MCV 89.8 MCH 29.8 MCHC 33.1 RDW 14.3 Plt Count 292 MPV 7.7 Prelim Diff (Auto) Slide review pending Neut % (Auto) 77.4 H Lymph % (Auto) 9.8 [place] % (Auto) 11.0 H Eos % (Auto) 1.3 Baso % (Auto) 0.5 Neut # (Auto) 7.0 Lymph # (Auto) 0.9 L [place] # (Auto) 1.0 H Eos # (Auto) 0.1 Baso # (Auto) 0.0 WBC Differential Manual diff final Seg Neuts % (Manual) 68 Band Neuts % (Manual) 9 H Lymphocytes % (Manual) 11 Monocytes % (Manual) 5 Basophils % (Manual) 1 Myelocytes % (Man) 6 H Abs Neuts (Manual) 7.5 Differential Comment . Platelet Estimate Normal Platelet Morphology Normal RBC Morphology Normal Sodium 140 Potassium 3.8 Chloride 104 Carbon Dioxide 28.5 Anion Gap 8 BUN 16 Creatinine 1.01 H Estimated GFR 56 L POC Glucose 119 H Random Glucose 122 H Calcium 9.1 04/19/18 04/19/18 04/19/18 12:02 16:29 20:36 WBC RBC Hgb Hct MCV MCH MCHC RDW Plt Count MPV Prelim Diff (Auto) Neut % (Auto) Lymph % (Auto) [place] % (Auto) Eos % (Auto) Baso % (Auto) Neut # (Auto) Lymph # (Auto) [place] # (Auto) Eos # (Auto) Baso # (Auto) WBC Differential Seg Neuts % (Manual) Band Neuts % (Manual) Lymphocytes % (Manual) Monocytes % (Manual) Basophils % (Manual) Myelocytes % (Man) Abs Neuts (Manual) Differential Comment Platelet Estimate Platelet Morphology RBC Morphology Sodium Potassium Chloride Carbon Dioxide Anion Gap BUN Creatinine Estimated GFR POC Glucose 143 H 186 H 178 H Random Glucose Calcium Microbiology 04/17/18 15:17 Fluid - Other Gram Stain - Final 04/17/18 15:17 Fluid - Other Body Fluid Culture - Final Staphylococcus aureus 04/16/18 10:33 Blood - Peripheral Aerobic Blood Culture - Preliminary No growth in 3 days 04/16/18 10:33 Blood - Peripheral Anaerobic Blood Culture - Preliminary No growth in 3 days 04/16/18 10:38 Blood - Peripheral Aerobic Blood Culture - Preliminary No growth in 3 days 04/16/18 10:38 Blood - Peripheral Anaerobic Blood Culture - Preliminary No growth in 3 days Assessment and Plan - Assessment (1) Cellulitis Code(s): L03.90 - Cellulitis, unspecified Status: Acute (2) Left breast abscess Code(s): N61.1 - Abscess of the breast and nipple Status: Acute - Plan 62-year-old female status post left mastectomy and immediate breast reconstruction with tissue pediatric speech therapist, now admitted for cellulitis on IV Vanco/ Zosyn Cellulitis improving Afebrile and white blood cell count down to 9 from 12 Vancomycin therapeutic on repeat trough Zosyn I agree with patient that her increased tenderness is likely due to the drain placement as her erythema is significantly improved and her white count is normalized Aspiration culture positive for Staphylococcus aureus
[2018-04-20] MEDS: Piperacil/Tazo 3.375 GM Premix 50 ML IV.SIG SCH ×4 (03:22→20:22)
[2018-04-20] MEDS: Vancomycin Inj 1,000 MG in Sodium Chlor 0.9% Inj 250 ML IV.SIG SCH ×2 (04:42→17:03)
[2018-04-20] MEDS: Levothyroxine 75 MCG Tablet PO SCH (05:11)
[2018-04-20] MEDS: Famotidine 20 MG Tablet PO SCH (09:13)
[2018-04-20] MEDS: Furosemide 40 MG Tablet PO SCH (09:13)
[2018-04-20] MEDS: Insulin NovoLOG Aspart Correctional Sugar Inj SQ SCH ×3 (09:14→20:23)
--- NOTE | 2018-04-20 09:32 | P.PN ---
Subjective Interval history: Patient reports that her left chest pain has entirely resolved except for mild pain in her axilla. This pain was there previously and is slightly better than yesterday. Patient reports that she ambulated 3 yesterday Physical Exam Vital signs: Vital Signs 04/19/18 12:00 04/19/18 16:00 04/19/18 20:00 Temperature 97.7 F 97.3 F L 97.7 F Pulse Rate 76 86 81 Respiratory Rate 16 16 17 Blood Pressure 103/57 L 100/65 103/72 Pulse Oximetry 96 97 96 04/20/18 00:00 04/20/18 04:00 04/20/18 08:00 Temperature 98.0 F 97.7 F 97.6 F Pulse Rate 89 71 78 Respiratory Rate 17 17 16 Blood Pressure 121/66 100/64 99/59 L Pulse Oximetry 97 97 97 Intake & Output 04/19/18 04/20/18 04/20/18 18:59 06:59 18:59 Intake Total 1200 / 1200 572 / 572 Output Total 825 / 825 825 / 825 Balance 375 / 375 -253 / -253 Weight 95.8 kg Intake: IV 600 / 600 350 / 350 Zosyn 3.375 GM Premix 50 ML @ 100 / 100 100 / 100 100 mls/hr IV.SIG Q6H PETE Rx#: [id number] Vancomycin Inj 1,000 MG In NS 500 / 500 250 / 250 Inj 250 ML @ 250 mls/hr IV.SIG Q12H PETE Rx#:[id number] Oral 600 / 600 222 / 222 Output: Urine 800 / 800 800 / 800 Wound Drainage Left Breast Other: # Voids 2 # Bowel Movements 1 Narrative: Erythema has almost resolved Nontender BASIA with 50 mls slightly turbid serous fluid in the last 24 hours Results - Labs CBC & Chem 7: 04/19/18 05:20 04/19/18 05:20 Laboratory Results - last 24 hr 04/19/18 04/19/18 04/19/18 12:02 16:29 20:36 POC Glucose 143 H 186 H 178 H 04/20/18 07:55 POC Glucose 161 H Microbiology 04/17/18 15:17 Fluid - Other Gram Stain - Final 04/17/18 15:17 Fluid - Other Body Fluid Culture - Final Staphylococcus aureus 04/16/18 10:33 Blood - Peripheral Aerobic Blood Culture - Preliminary No growth in 3 days 04/16/18 10:33 Blood - Peripheral Anaerobic Blood Culture - Preliminary No growth in 3 days 04/16/18 10:38 Blood - Peripheral Aerobic Blood Culture - Preliminary No growth in 3 days 04/16/18 10:38 Blood - Peripheral Anaerobic Blood Culture - Preliminary No growth in 3 days Assessment and Plan - Assessment (1) Cellulitis Code(s): L03.90 - Cellulitis, unspecified Status: Acute (2) Left breast abscess Code(s): N61.1 - Abscess of the breast and nipple Status: Acute - Plan 62-year-old female status post left mastectomy and immediate breast reconstruction with tissue workers' compensation hearings officer, admitted for infected seroma, on IV Vanco/ Zosyn, now post bedside BASIA placement on 04/18/2018 Patient much improved overall Aspiration culture positive for Staphylococcus aureus Advised patient that she should remain on IV antibiotics for 1-2 days given the presence of the tissue workers' compensation hearings officer Patient ambulating Appreciate medicine team input
--- NOTE | 2018-04-20 10:33 | P.PNIM ---
Subjective Interval history: in no acute distress. overall doing better. no fever. no new complaints. Physical Exam Vital signs: Vital Signs 04/19/18 12:00 04/19/18 16:00 04/19/18 20:00 Temperature 97.7 F 97.3 F L 97.7 F Pulse Rate 76 86 81 Respiratory Rate 16 16 17 Blood Pressure 103/57 L 100/65 103/72 Pulse Oximetry 96 97 96 04/20/18 00:00 04/20/18 04:00 04/20/18 08:00 Temperature 98.0 F 97.7 F 97.6 F Pulse Rate 89 71 78 Respiratory Rate 17 17 16 Blood Pressure 121/66 100/64 99/59 L Pulse Oximetry 97 97 97 Intake & Output 04/19/18 04/20/18 04/20/18 18:59 06:59 18:59 Intake Total 1200 / 1200 572 / 572 Output Total 825 / 825 825 / 825 Balance 375 / 375 -253 / -253 Weight 95.8 kg Intake: IV 600 / 600 350 / 350 Zosyn 3.375 GM Premix 50 ML @ 100 / 100 100 / 100 100 mls/hr IV.SIG Q6H PETE Rx#: [id number] Vancomycin Inj 1,000 MG In NS 500 / 500 250 / 250 Inj 250 ML @ 250 mls/hr IV.SIG Q12H PETE Rx#:[id number] Oral 600 / 600 222 / 222 Output: Urine 800 / 800 800 / 800 Wound Drainage 25 / Left Breast 25 Other: # Voids 2 # Bowel Movements 1 - Constitutional no acute distress - Detailed Breast Exam left Inspection: Present: erythema (is better.) - Routine Respiratory Exam Present: CTA bilaterally - Routine Cardiovascular Exam Present: RRR - Routine Abdominal Exam Present: soft - Routine Extremities Exam Comments: no pedal edema. - Routine Neurological Exam Present: alert, oriented X3 Results - Labs CBC & Chem 7: 04/19/18 05:20 04/19/18 05:20 Laboratory Results - last 24 hr 04/19/18 04/19/18 04/19/18 12:02 16:29 20:36 POC Glucose 143 H 186 H 178 H 04/20/18 07:55 POC Glucose 161 H Microbiology 04/17/18 15:17 Fluid - Other Gram Stain - Final 04/17/18 15:17 Fluid - Other Body Fluid Culture - Final Staphylococcus aureus 04/16/18 10:33 Blood - Peripheral Aerobic Blood Culture - Preliminary No growth in 3 days 04/16/18 10:33 Blood - Peripheral Anaerobic Blood Culture - Preliminary No growth in 3 days 04/16/18 10:38 Blood - Peripheral Aerobic Blood Culture - Preliminary No growth in 3 days 04/16/18 10:38 Blood - Peripheral Anaerobic Blood Culture - Preliminary No growth in 3 days Assessment and Plan - Plan A/P - sepsis due to cellulitis of the left breast- s/p recent mastectomy and left breast reconstruction- clinically better. left breast US with fluid collection. s/p I/D / drain placement at the bedside. continue with IV antibiotics and pain control- blood cultures negative so far - fluid culture with MSSA. plastic surgery following. -right forearm swelling; doppler with superficial thrombosis- better. -diabetes mellitus; started on accu-check with SSI -hypothyroidism; resumed home meds -DVT prophylaxis; SCD's till plastic surgery f/u. Discharge Planning: when cleared by plastic surgery.
[2018-04-21] MEDS: Piperacil/Tazo 3.375 GM Premix 50 ML IV.SIG SCH ×4 (02:02→20:20)
[2018-04-21] MEDS: Levothyroxine 75 MCG Tablet PO SCH (05:00)
[2018-04-21] MEDS: Vancomycin Inj 1,000 MG in Sodium Chlor 0.9% Inj 250 ML IV.SIG SCH ×2 (05:00→17:45)
[2018-04-21] MEDS: Insulin NovoLOG Aspart Correctional Sugar Inj SQ SCH ×4 (08:25→20:20)
[2018-04-21] MEDS: Furosemide 40 MG Tablet PO SCH (08:58)
[2018-04-21] MEDS: Famotidine 20 MG Tablet PO SCH (08:59)
--- NOTE | 2018-04-21 11:09 | P.PNIM ---
Subjective Interval history: in no acute distress. overall doing better. no fever. no new complaints. Physical Exam Vital signs: Vital Signs 04/20/18 12:00 04/20/18 18:00 04/20/18 20:00 Temperature 98.0 F 97.7 F 97.9 F Pulse Rate 92 H 81 88 Respiratory Rate 16 16 18 Blood Pressure 112/64 121/65 Pulse Oximetry 97 97 95 04/21/18 00:23 04/21/18 04:00 Temperature 97.9 F 97.8 F Pulse Rate 85 81 Respiratory Rate 18 16 Blood Pressure 119/78 103/65 Pulse Oximetry 98 95 Intake & Output 04/20/18 04/21/18 04/21/18 18:59 06:59 18:59 Intake Total 870 / 870 580 / 580 Output Total 830 / 830 Balance 870 / 870 -250 / -250 Intake: IV 350 / 350 100 / 100 Zosyn 3.375 GM Premix 50 ML @ 100 / 100 100 / 100 100 mls/hr IV.SIG Q6H PETE Rx#: [id number] Vancomycin Inj 1,000 MG In NS 250 / 250 Inj 250 ML @ 250 mls/hr IV.SIG Q12H PETE Rx#:[id number] Oral 520 / 520 480 / 480 Output: Urine 800 / 800 Wound Drainage 30 / 30 Left Breast 30 / 30 Other: # Voids 6 # Bowel Movements 1 0 - Constitutional no acute distress - Detailed Breast Exam left Inspection: Present: swelling Comments: swelling and erythema seems to be improving. - Routine Respiratory Exam Present: CTA bilaterally - Routine Cardiovascular Exam Present: RRR - Routine Abdominal Exam Present: soft - Routine Extremities Exam Comments: no pedal edema. - Routine Neurological Exam Present: alert, oriented X3 Results - Labs CBC & Chem 7: 04/19/18 05:20 04/19/18 05:20 Laboratory Results - last 24 hr 04/20/18 04/20/18 04/20/18 12:00 17:09 20:22 POC Glucose 118 H 140 H 144 H 04/21/18 07:51 POC Glucose 137 H Microbiology 04/16/18 10:33 Blood - Peripheral Aerobic Blood Culture - Final No growth in 5 days 04/16/18 10:33 Blood - Peripheral Anaerobic Blood Culture - Final No growth in 5 days 04/16/18 10:38 Blood - Peripheral Aerobic Blood Culture - Final No growth in 5 days 04/16/18 10:38 Blood - Peripheral Anaerobic Blood Culture - Final No growth in 5 days Assessment and Plan - Plan A/P - sepsis due to cellulitis of the left breast- s/p recent mastectomy and left breast reconstruction- clinically better. left breast US with fluid collection. s/p I/D / drain placement at the bedside. continue with IV antibiotics and pain control- blood cultures negative so far - fluid culture with MSSA. plastic surgery following. -right forearm swelling; doppler with superficial thrombosis- better. -diabetes mellitus; started on accu-check with SSI -hypothyroidism; resumed home meds Discharge Planning: when cleared by plastic surgery.
[2018-04-22] MEDS: Piperacil/Tazo 3.375 GM Premix 50 ML IV.SIG SCH ×4 (01:56→20:21)
[2018-04-22] MEDS: Levothyroxine 75 MCG Tablet PO SCH (05:05)
[2018-04-22] MEDS: Vancomycin Inj 1,000 MG in Sodium Chlor 0.9% Inj 250 ML IV.SIG SCH ×2 (05:05→17:38)
[2018-04-22] MEDS: Furosemide 40 MG Tablet PO SCH (08:56)
[2018-04-22] MEDS: Famotidine 20 MG Tablet PO SCH (08:56)
[2018-04-22] MEDS: Insulin NovoLOG Aspart Correctional Sugar Inj SQ SCH ×5 (08:58→23:57)
--- NOTE | 2018-04-22 10:45 | P.PNIM ---
Subjective Interval history: in no acute distress. overall doing better. no fever. no new complaints. Physical Exam Vital signs: Vital Signs 04/21/18 12:00 04/21/18 16:00 04/21/18 20:00 Temperature 97.7 F 98.0 F 98.7 F Pulse Rate 77 80 84 Respiratory Rate 18 16 16 Blood Pressure 116/63 104/57 L 99/54 L Pulse Oximetry 97 98 96 04/22/18 00:00 04/22/18 04:00 04/22/18 08:00 Temperature 97.9 F 97.5 F L 98 F Pulse Rate 76 80 78 Respiratory Rate 16 17 18 Blood Pressure 100/58 L 102/57 L 115/55 L Pulse Oximetry 96 95 95 Intake & Output 04/21/18 04/22/18 04/22/18 18:59 06:59 18:59 Intake Total 940 / 940 710 / 710 Output Total 2014 Balance -1075 / -1075 710 / 710 - Weight 95.3 kg Intake: IV 100 / 100 350 / 350 Zosyn 3.375 GM Premix 50 ML @ 100 / 100 100 / 100 100 mls/hr IV.SIG Q6H PETE Rx#: [id number] Vancomycin Inj 1,000 MG In NS 250 / 250 Inj 250 ML @ 250 mls/hr IV.SIG Q12H PETE Rx#:[id number] Oral 840 / 840 360 / 360 Output: Urine 1999 / 1999 Wound Drainage Left Breast Other: # Voids 2 Date of Last Bowel Movement 04/21/18 04/21/18 # Bowel Movements 4 - Constitutional no acute distress - Detailed Breast Exam left Inspection: Present: swelling Comments: left breast swelling / erythema improving. - Routine Respiratory Exam Present: CTA bilaterally - Routine Cardiovascular Exam Present: RRR - Routine Abdominal Exam Present: soft - Routine Extremities Exam Comments: no pedal edema. - Routine Neurological Exam Present: alert, oriented X3 Results - Labs CBC & Chem 7: 04/19/18 05:20 04/19/18 05:20 Laboratory Results - last 24 hr 04/21/18 04/21/18 04/21/18 11:51 16:56 20:19 POC Glucose 192 H 125 H 141 H 04/22/18 07:57 POC Glucose 141 H Microbiology 04/16/18 10:33 Blood - Peripheral Aerobic Blood Culture - Final No growth in 5 days 04/16/18 10:33 Blood - Peripheral Anaerobic Blood Culture - Final No growth in 5 days 04/16/18 10:38 Blood - Peripheral Aerobic Blood Culture - Final No growth in 5 days 04/16/18 10:38 Blood - Peripheral Anaerobic Blood Culture - Final No growth in 5 days Assessment and Plan - Plan A/P - sepsis due to cellulitis of the left breast- s/p recent mastectomy and left breast reconstruction- clinically better. left breast US with fluid collection. s/p I/D / drain placement at the bedside. continue with IV antibiotics and pain control- blood cultures negative so far - fluid culture with MSSA. plastic surgery following. -right forearm swelling; doppler with superficial thrombosis- better. -diabetes mellitus; started on accu-check with SSI -hypothyroidism; resumed home meds Discharge Planning: hopefully soon- when cleared by plastic surgery.
[2018-04-23] MEDS: Piperacil/Tazo 3.375 GM Premix 50 ML IV.SIG SCH (02:19)
[2018-04-23] MEDS: Levothyroxine 75 MCG Tablet PO SCH (05:52)
[2018-04-23] MEDS: Vancomycin Inj 1,000 MG in Sodium Chlor 0.9% Inj 250 ML IV.SIG SCH ×2 (05:52→17:08)
--- NOTE | 2018-04-23 08:52 | P.PNIM ---
Subjective Interval history: f/u; cellulitis/ abscess left breast. overall doing fine. denies pain. afebrile. no new complaints. Physical Exam Vital signs: Vital Signs 04/22/18 12:00 04/22/18 16:00 04/22/18 20:00 Temperature 97.9 F 98.1 F 97.5 F L Pulse Rate 82 86 83 Respiratory Rate 18 18 18 Blood Pressure 125/70 116/58 L 107/58 L Pulse Oximetry 95 94 L 96 04/23/18 00:00 04/23/18 04:00 04/23/18 06:26 Temperature 97.9 F 97.9 F Pulse Rate 81 85 Respiratory Rate 18 18 16 Blood Pressure 130/67 109/57 L Pulse Oximetry 98 98 Intake & Output 04/22/18 04/23/18 04/23/18 18:59 06:59 18:59 Intake Total 580 / 580 830 / 830 Output Total 2035 / 2035 500 / 500 Balance -1455 / -1455 330 / 330 Weight 95.4 kg Intake: IV 100 / 100 350 / 350 Zosyn 3.375 GM Premix 50 ML @ 100 / 100 100 / 100 100 mls/hr IV.SIG Q6H PETE Rx#: [id number] Vancomycin Inj 1,000 MG In NS 250 / 250 Inj 250 ML @ 250 mls/hr IV.SIG Q12H PETE Rx#:[id number] Oral 480 / 480 480 / 480 Output: Urine 2000 / 2000 500 / 500 Wound Drainage 35 / 35 Left Breast 35 / 35 Other: Date of Last Bowel Movement 04/21/18 # Bowel Movements 4 - Constitutional no acute distress - Detailed Breast Exam left Inspection: Present: swelling (left breast swelling has improved. drain in place.) - Routine Respiratory Exam Present: CTA bilaterally - Routine Cardiovascular Exam Present: RRR - Routine Abdominal Exam Present: soft - Routine Neurological Exam Present: alert, oriented X3 Results - Labs CBC & Chem 7: 04/19/18 05:20 04/19/18 05:20 Laboratory Results - last 24 hr 04/22/18 04/22/18 04/23/18 11:59 21:37 08:32 POC Glucose 312 H 144 H 125 H Assessment and Plan - Plan A/P - sepsis due to cellulitis of the left breast- s/p recent mastectomy and left breast reconstruction- clinically better. left breast US with fluid collection. s/p I/D / drain placement at the bedside. continue with IV antibiotics and pain control- blood cultures negative so far - fluid culture with MSSA. will dc Ifeanyi . plastic surgery following. -right forearm swelling; doppler with superficial thrombosis- better. -diabetes mellitus; started on accu-check with SSI -hypothyroidism; resumed home meds Discharge Planning: when cleared by plastic surgery.
[2018-04-23] MEDS: Insulin NovoLOG Aspart Correctional Sugar Inj SQ SCH ×4 (09:56→20:09)
[2018-04-23] MEDS: Famotidine 20 MG Tablet PO SCH (09:57)
[2018-04-23] MEDS: Furosemide 40 MG Tablet PO SCH (09:57)
[2018-04-24] MEDS: Levothyroxine 75 MCG Tablet PO SCH (05:22)
[2018-04-24] MEDS: Vancomycin Inj 1,000 MG in Sodium Chlor 0.9% Inj 250 ML IV.SIG SCH (05:23)
[2018-04-24 09:41] LABS: Baso % (Auto) 0.3 % (0.0-2.0); Eos # (Auto) 0.1 th/mm3 (0.0-0.4); Eos % (Auto) 1.2 % (0.0-4.0); Hematocrit 36.2 % (35.0-46.0); Lymph % (Auto) 9.9 % (9.0-44.0); Mean Corpuscular HGB Conc 33.1 % (32.0-36.0); Mean Corpuscular Hemoglobin 29.7 pg (27.0-34.0); Mean Corpuscular Volume 89.6 fL (80.0-100.0); Mean Platelet Volume 7.7 fL (7.0-11.0); Mono # (Auto) 0.8 th/mm3 (0.0-0.9); Neut % (Auto) 80.6 % (16.0-70.0); Platelet Count 330 th/mm3 (150-450); Red Blood Count 4.05 mil/mm3 (4.00-5.30); Red Cell Distribution Width 14.6 % (11.6-17.2); White Blood Count 9.9 th/mm3 (4.0-11.0)
[2018-04-24] MEDS: Famotidine 20 MG Tablet PO SCH (09:50)
[2018-04-24] MEDS: Insulin NovoLOG Aspart Correctional Sugar Inj SQ SCH ×4 (09:50→20:42)
[2018-04-24] MEDS: Furosemide 40 MG Tablet PO SCH (09:50)
[2018-04-24 09:56] LABS: Calcium 9.3 mg/dL (8.5-10.1); Carbon Dioxide 27.5 meq/L (21.0-32.0)
--- NOTE | 2018-04-24 11:25 | P.PNIM ---
Subjective Interval history: f/u; left breast cellulitis/ abscess looks comfortable. drain in place. no fever. pain is controlled. no fever. Physical Exam Vital signs: Vital Signs 04/23/18 12:00 04/23/18 16:00 04/23/18 20:00 Temperature 97.9 F 97.5 F L 97.8 F Pulse Rate 90 88 78 Respiratory Rate 18 18 18 Blood Pressure 101/55 L 110/60 103/57 L Pulse Oximetry 97 97 95 04/24/18 00:00 04/24/18 03:09 Temperature 97.9 F 98.0 F Pulse Rate 85 78 Respiratory Rate 16 14 Blood Pressure 116/67 113/60 Pulse Oximetry 97 96 Intake & Output 04/23/18 04/24/18 04/24/18 18:59 06:59 18:59 Intake Total 1220 / 1220 250 / 250 Output Total 800 / 800 50 / 50 Balance 420 / 420 200 / 200 Intake: IV 500 / 500 250 / 250 Vancomycin Inj 1,000 MG In NS 500 / 500 250 / 250 Inj 250 ML @ 250 mls/hr IV.SIG Q12H PETE Rx#:[id number] Oral 720 / 720 Output: Urine 800 / 800 Wound Drainage 50 / 50 Left Breast 50 / 50 Other: Post Void Residual 200 # Voids 2 Date of Last Bowel Movement 04/23/18 04/23/18 - Constitutional no acute distress - Routine Respiratory Exam Present: CTA bilaterally - Routine Cardiovascular Exam Present: RRR - Routine Abdominal Exam Present: soft - Routine Extremities Exam Comments: no pedal edema. - Routine Neurological Exam Present: alert, oriented X3 Results - Labs CBC & Chem 7: 04/24/18 08:52 04/24/18 08:52 Laboratory Results - last 24 hr 04/23/18 04/23/18 04/23/18 11:42 17:33 20:02 WBC RBC Hgb Hct MCV MCH MCHC RDW Plt Count MPV Neut % (Auto) Lymph % (Auto) [place] % (Auto) Eos % (Auto) Baso % (Auto) Neut # (Auto) Lymph # (Auto) [place] # (Auto) Eos # (Auto) Baso # (Auto) WBC Differential Differential Comment Sodium Potassium Chloride Carbon Dioxide Anion Gap BUN Creatinine Estimated GFR POC Glucose 122 H 148 H 163 H Random Glucose Calcium 04/24/18 04/24/18 04/24/18 08:19 08:52 08:52 WBC 9.9 RBC 4.05 Hgb 12.0 Hct 36.2 MCV 89.6 MCH 29.7 MCHC 33.1 RDW 14.6 Plt Count 330 MPV 7.7 Neut % (Auto) 80.6 H Lymph % (Auto) 9.9 [place] % (Auto) 8.0 Eos % (Auto) 1.2 Baso % (Auto) 0.3 Neut # (Auto) 8.0 H Lymph # (Auto) 1.0 [place] # (Auto) 0.8 Eos # (Auto) 0.1 Baso # (Auto) 0.0 WBC Differential . Differential Comment Auto diff final Sodium 140 Potassium 4.0 Chloride 105 Carbon Dioxide 27.5 Anion Gap 8 BUN 17 Creatinine 1.03 H Estimated GFR 54 L POC Glucose 112 H Random Glucose 124 H Calcium 9.3 Assessment and Plan - Plan A/P - sepsis due to cellulitis of the left breast- s/p recent mastectomy and left breast reconstruction- clinically better. left breast US with fluid collection. s/p I/D / drain placement at the bedside.fluid culture with MSSA; continue with IV antibiotic ; dc'ed Vanco and started on Ancef-continue pain control- blood cultures negative so far- plastic surgery following. -right forearm swelling; doppler with superficial thrombosis- better. -diabetes mellitus; started on accu-check with SSI -hypothyroidism; resumed home meds Discharge Planning: when cleared by plastic surgery.
--- NOTE | 2018-04-24 14:47 | P.PN ---
Subjective Interval history: Patient reports diminishing pain Physical Exam Vital signs: Vital Signs 04/23/18 16:00 04/23/18 20:00 04/24/18 00:00 Temperature 97.5 F L 97.8 F 97.9 F Pulse Rate 88 78 85 Respiratory Rate 18 18 16 Blood Pressure 110/60 103/57 L 116/67 Pulse Oximetry 97 95 97 04/24/18 03:09 04/24/18 08:00 Temperature 98.0 F Pulse Rate 78 Respiratory Rate 14 14 Blood Pressure 113/60 Pulse Oximetry 96 Intake & Output 04/23/18 04/24/18 04/24/18 18:59 06:59 18:59 Intake Total 1220 / 1220 250 / 250 Output Total 800 / 800 50 / 50 Balance 420 / 420 200 / 200 Intake: IV 500 / 500 250 / 250 Vancomycin Inj 1,000 MG In NS 500 / 500 250 / 250 Inj 250 ML @ 250 mls/hr IV.SIG Q12H PETE Rx#:[id number] Oral 720 / 720 Output: Urine 800 / 800 Wound Drainage 50 / 50 Left Breast 50 / 50 Other: Post Void Residual 200 # Voids 2 Date of Last Bowel Movement 04/23/18 04/23/18 04/23/18 Narrative: Resolving left chest erythema Nontender Drain with 50 mL's seropurulent output Results - Labs CBC & Chem 7: 04/24/18 08:52 04/24/18 08:52 Laboratory Results - last 24 hr 04/23/18 04/23/18 04/24/18 17:33 20:02 08:19 WBC RBC Hgb Hct MCV MCH MCHC RDW Plt Count MPV Neut % (Auto) Lymph % (Auto) [place] % (Auto) Eos % (Auto) Baso % (Auto) Neut # (Auto) Lymph # (Auto) [place] # (Auto) Eos # (Auto) Baso # (Auto) WBC Differential Differential Comment Sodium Potassium Chloride Carbon Dioxide Anion Gap BUN Creatinine Estimated GFR POC Glucose 148 H 163 H 112 H Random Glucose Calcium 04/24/18 04/24/18 04/24/18 08:52 08:52 12:34 WBC 9.9 RBC 4.05 Hgb 12.0 Hct 36.2 MCV 89.6 MCH 29.7 MCHC 33.1 RDW 14.6 Plt Count 330 MPV 7.7 Neut % (Auto) 80.6 H Lymph % (Auto) 9.9 [place] % (Auto) 8.0 Eos % (Auto) 1.2 Baso % (Auto) 0.3 Neut # (Auto) 8.0 H Lymph # (Auto) 1.0 [place] # (Auto) 0.8 Eos # (Auto) 0.1 Baso # (Auto) 0.0 WBC Differential . 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 on per primary Please have patient return to plastic surgery clinic this week Patient to continue monitoring drain output Please call with questions
[2018-04-25] MEDS: Levothyroxine 75 MCG Tablet PO SCH (05:11)
[2018-04-25] MEDS: Famotidine 20 MG Tablet PO SCH (08:09)
[2018-04-25] MEDS: Furosemide 40 MG Tablet PO SCH (08:10)
[2018-04-25] MEDS: Insulin NovoLOG Aspart Correctional Sugar Inj SQ SCH ×2 (08:15→12:16)
[2018-04-25 09:50] VITALS: TEMP 97.7
--- NOTE | 2018-04-25 11:48 | P.DS ---
Date of admission: 04/15/18 15:24 Primary care physician: Ruddy Altamirano MD Attending physician on discharge: Christianne Scott Anticipated date of discharge: 04/25/18 Brief History from admission: patient is a 62 y/o female who was diagnosed with breast cancer last June, underwent left mastectomy and lymph node removal/ and left breasdt reconstruction about a month ago, was sent to the hospital as a direct admit because of infection of the left breast. she says that she noticed some swelling and redness on the site of the surgery about a week ago. she had fever and chills at home. she was seen by her plastic surgery yesterday and was advised to come to the hospital at the time of my evaluation she was comfortable with mild pain. DS: Diagnosis - Discharge Diagnosis (1) Cellulitis Status: Acute DS: Medications - Discharge Medications Prescriptions: cephalexin [Keflex] 500 mg PO BID 7 Days #14 cap DS: Summary Hospital Course: - sepsis due to cellulitis of the left breast- s/p recent mastectomy and left breast reconstruction- clinically better. left breast US with fluid collection. s/p I/D / drain placement at the bedside.fluid culture with MSSA; continue with IV antibiotic ; dc'ed Vanco and started on Ancef-continue pain control- blood cultures negative so far- plastic surgery following, cleared for DC per plastic surgery -right forearm swelling; doppler with superficial thrombosis- better. -diabetes mellitus; started on accu-check with SSI -hypothyroidism; resumed home meds - Time Spent with Patient Total time spent providing and/or coordinating discharge services: - Quality: VTE Deep Vein Thrombosis/Pulmonary Embolism Present on Admission: No Exam Vital signs: Vital Signs 04/24/18 12:00 04/24/18 16:00 04/24/18 20:00 Temperature 98.1 F 97.8 F 98.9 F Pulse Rate 79 83 84 Respiratory Rate 18 18 18 Blood Pressure 130/65 108/59 L 114/67 Pulse Oximetry 97 96 98 04/25/18 00:00 04/25/18 04:33 04/25/18 08:00 Temperature 98.0 F 97.6 F 97.7 F Pulse Rate 74 78 75 Respiratory Rate 18 20 17 Blood Pressure 98/75 L 93/58 L 111/61 Pulse Oximetry 97 97 99 Intake & Output 04/24/18 04/25/1818 18:59 06:59 18:59 Intake Total 580 / 580 680 / 680 Output Total 1200 / 1200 1725 / 1725 Balance -620 / -620 -1045 / -1045 Weight 93.8 kg Intake: IV 100 / 100 200 / 200 Ancef Inj 1,000 MG In NS Inj 100 / 100 200 / 200 100 ML @ 200 mls/hr IV.SIG Q8H PETE Rx#:[id number] Oral 480 / 480 480 / 480 Output: Urine 1200 / 1200 1700 / 1700 Wound Drainage Left Breast Other: Date of Last Bowel Movement 04/23/18 04/24/18 # Bowel Movements 0 Narrative: GENERAL: This is a well-nourished, well-developed patient, in no apparent distress. SKIN: dressing left breast dry and intact, BASIA drain in place and compressed CARDIOVASCULAR: Regular rate and rhythm RESPIRATORY: Clear to auscultation. Breath sounds equal bilaterally. GASTROINTESTINAL: Abdomen soft, non-tender, nondistended. Normal active bowel sounds MUSCULOSKELETAL: Extremities without clubbing, cyanosis, or edema. NEURO: Alert & Oriented x4 to person, place, time, situation. Moves all ext x4 Results Procedures completed during hospitalization: status post bedside seroma drainage and BASIA placement on 04/18/[address] Rhodes Labs on day of discharge: Labs from last 24 hours 04/25/18 04/25/18 04/24/18 11:32 07:18 20:40 POC Glucose 161 H 117 H 191 H 04/24/18 04/24/18 17:03 12:34 POC Glucose 122 H 110 - Impressions ITS Impressions Venous Doppler Study 04/17/18 00:00 CONCLUSION: 1. Superficial thrombus occlusive within the right cephalic vein. No deep venous thrombosis. Breast Ultrasound 04/18/18 00:01 CONCLUSION: 1. Apparent interval increase in the size of the heterogeneous hypoechoic area. The differential diagnosis again includes abscess and hematoma. Discharge Plan - Discharge Disposition Patient Disposition: 01 Discharge Home - Discharge Condition Condition: Stable - Discharge Order Discharge Orders: Discharge Order (Routine); Ordered 04/25/18 Ordered By: Zainab Belcher - Discharge Details Anticipated Discharge Date: 04/25/18 - Physicians Team Primary Care Provider: Ruddy Altamirano Attending Provider: Fritze,Christianne Other Providers: Mikie Rhodes MD ; Cabe [place],Insurance - Rxs /Orders / Referrals /Forms Prescriptions: New cephalexin [Keflex] 500 mg Capsule 500 mg PO BID 7 Days Qty: 14 RF: 0 Continue acetaminophen [Tylenol Extra Strength] 500 mg Tablet 500 mg PO QID calcium carbonate-vitamin D3 [Caltrate with Vitamin D3] 600 mg(1,500mg) -800 unit Tablet 600 mg PO DAILY cholecalciferol (vitamin D3) [Vitamin D3] 2,000 unit Capsule 2,000 unit PO DAILY furosemide [Lasix] 40 mg Tablet 40 mg PO DAILY levothyroxine 75 mcg Tablet 75 mcg PO DAILY losartan 25 mg Tablet 6.25 mg PO DAILY metformin 500 mg Tablet 500 mg PO TID potassium chloride 20 mEq Tablet Extended Release 20 meq PO DAILY ranitidine HCl 150 mg Tablet 150 mg PO DAILY Referrals: Mikie Rhodes MD [PLASTIC & RECONSTRUCTIVE SURGE] - See Instructions (Follow up with Dr. Rhodes this week) Ruddy Altamirano MD [Primary Care Provider] - See Instructions (Ruddy Goyal [phone] 04/27/2018) - Discharge Instructions Patient Printed Instructions: Cephalexin (By mouth) Additional Instructions: care for incision and BASIA drain as instructed per plastic surgery
[2018-04-25 12:08] VITALS: BP 143/84; PULSE 96; RESP 18; O2SAT 97
== END 2018-04-25 13:13 | disposition home or self-care (01) ==
LOC: N04 15:24
PROVIDERS: ADMIT Family Medicine; ATTEND Family Medicine